=== PATIENT | female | born 1980 | race Caucasian/White ===

== ENCOUNTER 2017-04-01 13:27 | Inpatient (IN) | payer OTHER ==
[~2017-04-01] VITALS: Ht 167.6 cm; Wt 90.5 kg
[~2017-04-01 13:27] MED LIST: IBUP-1222 PO; RANI75TA12 PO
[2017-04-01] MEDS ORDERED: OXYTOCIN 30U/ 0.9% NaCL 500ML 500 ML IV PRN ×2 (13:29→14:51)
[2017-04-01] MEDS ORDERED: OXYTOCIN 30U/ 0.9% NaCL 500ML 500 ML IV ONE ×3 (13:29)
[2017-04-01] MEDS ORDERED: LACTATED RINGERS 1,000 ML IV SCH (13:29)
[2017-04-01] MEDS ORDERED: D5%-LACTATED RINGERS 1,000 ML IV SCH ×2 (13:29→14:51)
[2017-04-01] MEDS ORDERED: FENTANYL PF 100 MCG/2ML IV PRN ×2 (13:30→15:00)
[2017-04-01] MEDS ORDERED: CALCIUM CARBONATE 500 MG TAB.CHEW PO PRN ×2 (13:30→15:00)
[2017-04-01] MEDS ORDERED: FENTANYL PF 100 MCG/2ML IVPush PRN ×2 (13:30→15:00)
[2017-04-01] MEDS ORDERED: MISOPROSTOL 25 MCG TABLET VG PRN (13:30)
[2017-04-01] MEDS ORDERED: ONDANSETRON 2MG/ML, 2ML IVPush PRN ×2 (13:30→15:00)
[2017-04-01] MEDS ORDERED: RANI150C PO (13:54)
[2017-04-01] MEDS ORDERED: PREN1TAB25 PO (13:55)
[2017-04-01] MEDS ORDERED: PLEASE ENTER HEIGHT AND WEIGHT MC SCH (14:00)
[2017-04-01] MEDS ORDERED: PENICILLIN GK 5,000,000 UNITS in DEXTROSE 5% 100 ML IVPB ONE (14:00)
[2017-04-01 14:21] VITALS: BP 145/83
[2017-04-01] MEDS ORDERED: MISOPROSTOL 25 MCG TABLET ONE ×2 (14:38→20:38)
[2017-04-01] MEDS: MISOPROSTOL 25 MCG TABLET VG PRN ×2 (15:04→20:49)
[2017-04-01] MEDS: LACTATED RINGERS 1,000 ML IV SCH ×2 (15:04→23:10)
[2017-04-01] MEDS ORDERED: NEWBORN KIT ONE (16:03)
[2017-04-01] MEDS ORDERED: OXYTOCIN 30U/ 0.9% NaCL 500ML 500 ML ONE (16:03)
[2017-04-01] MEDS ORDERED: MISOPROSTOL 200 MCG TABLET ONE (16:03)
[2017-04-01] MEDS ORDERED: LIDOCAINE 1%, 20ML ONE (16:03)
[2017-04-01] MEDS: PENICILLIN GK 2,500,000 UNITS in DEXTROSE 5% 100 ML IVPB SCH ×2 (18:50→23:10)
[2017-04-01] MEDS: FAMOTIDINE 20 MG/2 ML IVPush SCH (20:32)
[2017-04-02] MEDS ORDERED: FENTANYL PF 100 MCG/2ML ONE (02:55)
[2017-04-02] MEDS ORDERED: FENTANYL/BUPIV./NS/PF 250 ML EPIDCONT ONE (03:10)
[2017-04-02] MEDS ORDERED: LACTATED RINGERS 1,000 ML IV SCH (03:48)
[2017-04-02] MEDS ORDERED: FENTANYL/BUPIV./NS/PF 250 ML EPIDCONT SCH (03:48)
[2017-04-02] MEDS ORDERED: NALOXONE 0.4 MG/ML, 1ML IVPush PRN (04:00)
[2017-04-02] MEDS ORDERED: EPHEDRINE 50 MG/ML, 1ML IVPush PRN (04:00)
[2017-04-02] MEDS ORDERED: LACTATED RINGERS 1,000 ML IVBOLUS PRN (04:00)
[2017-04-02] MEDS: PENICILLIN GK 2,500,000 UNITS in DEXTROSE 5% 100 ML IVPB SCH ×2 (04:01→07:00)
[2017-04-02] MEDS ORDERED: ACETAMINOPHEN 325 MG TABLET PO PRN (05:30)
[2017-04-02] MEDS ORDERED: ONDANSETRON 2MG/ML, 2ML IV PRN (05:30)
[2017-04-02] MEDS ORDERED: CALCIUM CARBONATE 500 MG TAB.CHEW PO PRN (05:30)
[2017-04-02] MEDS ORDERED: DOCUSATE 100 MG CAPSULE PO PRN (05:30)
[2017-04-02] MEDS ORDERED: OXYcodone/APAP 5/325MG TABLET PO PRN (05:30)
[2017-04-02] MEDS ORDERED: MISOPROSTOL 200 MCG TABLET PR PRN (05:30)
[2017-04-02] MEDS ORDERED: OXYTOCIN 30U/ 0.9% NaCL 500ML 500 ML ONE (06:37)
[2017-04-02] MEDS: LACTATED RINGERS 1,000 ML IV SCH ×4 (06:51→19:43)
[2017-04-02] MEDS: OXYTOCIN 30U/ 0.9% NaCL 500ML 500 ML IV SCH ×2 (06:53→15:21)
[2017-04-02] MEDS ORDERED: IBUPROFEN 600 MG TABLET ONE (07:32)
[2017-04-02] MEDS: IBUPROFEN 600 MG TABLET PO PRN ×3 (07:34→22:26)
[2017-04-02 08:00] VITALS: BP 125/72
[2017-04-02] MEDS: PRENATAL VIT/IRON/FA 1 EACH TABLET PO SCH (09:00)
[2017-04-02] MEDS: FAMOTIDINE 20 MG/2 ML IVPush SCH ×2 (09:00→21:00)
[2017-04-02 12:00] VITALS: BP 122/71
[2017-04-02 16:00] VITALS: BP 113/73
[2017-04-02 20:30] VITALS: BP 117/72
[2017-04-02] MEDS: FAMOTIDINE 20 MG TABLET PO SCH (22:26)
[2017-04-03] MEDS: OXYTOCIN 30U/ 0.9% NaCL 500ML 500 ML IV SCH ×2 (01:21→11:21)
[2017-04-03 01:30] VITALS: BP 121/66
[2017-04-03] MEDS: LACTATED RINGERS 1,000 ML IV SCH ×2 (03:43→11:37)
[2017-04-03 04:30] VITALS: BP 125/65
[2017-04-03 08:19] VITALS: BP 115/65
[2017-04-03] MEDS: PRENATAL VIT/IRON/FA 1 EACH TABLET PO SCH (08:24)
[2017-04-03] MEDS: FAMOTIDINE 20 MG TABLET PO SCH (08:24)
[2017-04-03] MEDS: IBUPROFEN 600 MG TABLET PO PRN (08:24)
== END 2017-04-03 13:50 | disposition home or self-care (01) | DRG 775 ==
LOC: LDIP 13:27 → 2NW 04-02 07:55
PROVIDERS: ADMIT Obstetrics & Gynecology; ATTEND Obstetrics & Gynecology
PROC: 10E0XZZ Delivery of Products of Conception, External Approach (ICD-10-PCS; principal; 2017-04-02)
PROC: 0HQ9XZZ Repair Perineum Skin, External Approach (ICD-10-PCS; 2017-04-02)
PROC: 00HU33Z Insertion of Infusion Device into Spinal Canal, Percutaneous Approach (ICD-10-PCS; 2017-04-02)
PROC: 3E0R3CZ (ICD-10-PCS; 2017-04-02)
PROC: 10907ZC Drainage of Amniotic Fluid, Therapeutic from Products of Conception, Via Natural or Artificial Opening (ICD-10-PCS; 2017-04-02)
DX: O99.824 Streptococcus B carrier state complicating childbirth (principal); O41.03X0 Oligohydramnios, third trimester, not applicable or unspecified; Z37.0 Single live birth; Z3A.38 38 weeks gestation of pregnancy; O70.0 First degree perineal laceration during delivery
CPT/HCPCS: 36415; 85025; 86850; 86900; J2540; J2590; J3010; J7120; S0028